=== PATIENT | male | born 1945 | race Caucasian/White ===

== ENCOUNTER → 2017-04-18 | Outpatient (CLI) | payer MEDICARE | END | disposition home or self-care (01) | LOC: LABPAT 13:42 | PROVIDERS: ATTEND Orthopaedic Surgery | DX: Z01.812 Encounter for preprocedural laboratory examination (principal) | CPT/HCPCS: 87070 ==

== ENCOUNTER 2017-04-24 07:07 | Inpatient (IN) | payer MEDICARE ==
[2017-04-20 10:12] VITALS: BMI 43.2
--- NOTE | 2017-04-23 10:07 | HP ---
DATE OF ADMISSION: CHIEF COMPLAINT: Right knee pain. HISTORY OF PRESENT ILLNESS: The patient is a 71-year-old retired gentleman who presents with progressive right knee pain, worsening over the past several months. He has tried previous medications and injections with only partial temporary relief. He notes it severely limits his activities. PAST MEDICAL HISTORY: Significant for atrial fibrillation, hypertension, and arthritis. PAST SURGICAL HISTORY: Significant for right knee arthroscopy. CURRENT MEDICATIONS: 1. Amlodipine. 2. Aspirin. 3. Coumadin. 4. Simvastatin. 5. Tramadol. 6. Tylenol. 7. Metoprolol. He denies drug allergies. FAMILY HISTORY: Noncontributory. SOCIAL HISTORY: Negative for current tobacco or alcohol use. Sixteen-point review of systems otherwise reviewed and is noncontributory. On examination, the patient is approximately 5 feet 10 inches, 295 pounds of endomorphic habitus. HEENT exam is nonfocal. Neck is supple. He has painless passive motion of his right hip. Straight leg raise is negative. Active motion of the right knee -10 to 100 degrees of flexion. He has a moderate effusion. He is tender about the medial and lateral joint line. Collaterals are stable, Gerson's negative, Karishma's is equivocal. He has genu valgum alignment. His distal neurovascular exam appears intact in the right lower extremity. Previous weight-bearing, notch, lateral, and merchant views of the right knee obtained in the office show severe lateral and patellofemoral compartment narrowing. IMPRESSION: 1. Right knee severe lateral and patellofemoral compartment osteoarthrosis. 2. Increased body mass index. 3. Atrial fibrillation on chronic anticoagulation. RECOMMENDATIONS: I talked to the patient at length regarding his treatment options. At this point he is quite symptomatic because of pain related to his osteoarthrosis despite conservative measures. After thorough discussion, he opts to proceed with surgery. We will plan to proceed with right total knee arthroplasty. Risks and benefits were discussed at length in layman's terms. We will resume his Coumadin postoperatively. Patient underwent preoperative medical evaluation by Dr. Enciso along with preoperative cardiac evaluation by Dr. Elizabeth Betancourt.
[~2017-04-24 07:07] MED LIST: ACETAMINOPHEN TAB 500 MG TAB PO ONE; HYDROmorphone 1 MG/ML 1 ML SYRINGE IVP PRN; MELOXICAM 7.5 MG TAB PO ONE; MIDAZOLAM 2 MG/2 ML VIAL IV PRN; ONDANSETRON 4 MG/2 ML VIAL IVP ONE; TRANEXAMIC ACID 1,000 MG in SODIUM CHLORIDE 0.9% 100 ML IVPB ONE; ceFAZolin 3 GM in SODIUM CHLORIDE 0.9% 100 ML IVPB ONE
[2017-04-24] MEDS ORDERED: LIDOCAINE 1% 20 ML VIAL (10MG/ML) FOR IV START INTRADERMA ONE (11:44)
[2017-04-24] MEDS: LACTATED RINGERS 1,000 ML IV SCH (12:09)
[2017-04-24] MEDS ORDERED: ROPIVACAINE 246.25 MG, EPINEPHrine 0.5 MG, KETOROLAC 30 MG, cloNIDine HCL/PF 80 MCG, WA... MISCELLANE ONE ×5 (12:19)
[2017-04-24 12:26] LABS: INR 1.1 (<1.1); Prothrombin Time 11.2 sec (9.0-12.0)
--- NOTE | 2017-04-24 12:27 | P.DS ---
Providers Date of admission: 04/24/17 11:18 Expected date of discharge: 04/26/17 Attending physician: Hamzah Xavier Primary care physician: Zaheer Enciso [facility] Course: Date of admission: 04/24/2017 Date of discharge: 04/26/2017 Admission diagnosis: Status post right total knee arthroplasty Discharge diagnosis: Same Attending physician: Dr. Xavier Surgical procedures: Right total knee arthroplasty Brief history: Patient is a 71-year-old male with a history of progressive primary right knee osteoarthritis. At this point patient has failed conservative treatment measures and has opted to proceed with a elective right total knee arthroplasty. Hospital course: Details of patient's surgery can be found in operative report. Patient tolerated the procedure well and was subsequently transported to orthopedic floor. Patient's orthopeidc and medical care was provided daily. Patient had daily laboratory tests performed for evaluation of overall blood counts. Patient had daily physical therapy to include strengthening range of motion as well as education with walker ambulation. Patient had daily CPM usage as part of their physical therapy program. Patient was treated with Coumadin and Lovenox for their postoperative DVT prophylaxis during their inpatient stay. Patient was noted to have a relatively uneventful postoperative course. Patient reported satisfactory pain control with oral pain medications by postoperative day 0. Patient showed satisfactory progress with physical therapy. Patient moved steadily through the program and had no difficulty meeting the goals by postoperative day 2. Given patient's otherwise satisfactory course and having met physical therapy goals, plan is to discharge patient home on postoperative day 2. Discharge condition/disposition: Patient will be discharged home in stable condition. Discharge medications: Instructions are given on resumption of patient's normal daily medications per primary care recommendation, in addition patient will be prescribed [place] 7.5 mg/325 mg, Colace 100 mg, Pepcid 20 mg Discharge instructions: 1. Wound care and infection precautions, [keep incision dry and covered while showering], no lotions, creams, moisturizers. No soaking, tubs, pools, hottubs. Do not scrub over the incision. 2. Weight-bear as tolerated with walker / cane until follow-up. 3. Ice and elevate when necessary. Do not exceed 20 minutes per hour with ice pack. 4. Utilize compression sleeve until seen at first follow up appointment. 5. Visiting nursing care. 6. Home physical therapy including home CPM. 7. Pain meds and anticoagulants per prescription. 8. Pain medication has potential to cause constipation. Increase oral fluid and fiber intake. Contact primary care provider if you have not had a bowel movement within 48 hours after discharge 9. No anti-inflammatory medication until discussed at first post operative visit, this including Motrin, Aleve, Mobic, Diclofenac. 10. Follow up in office at 2 weeks postop with Jeffrey Ashby PA-C 11. Follow up with your primary care doctor 7-10 days after discharge. 12. Contact [facility] with any questions, . Procedures: Right total knee arthroplasty Patient Condition at Discharge: Good Plan - Discharge Summary New Discharge Prescriptions: New Docusate [Colace] 100 mg PO DAILY #30 capsule Famotidine [Pepcid] 20 mg PO DAILY #30 tablet HYDROcodone/APAP 7.5-325MG [[place] 7.5] 1 - 2 each PO Q6HR PRN #60 tab PRN Reason: Pain Continue Melatonin 10 mg PO HS Acetaminophen [Tylenol Arthritis] 650 mg PO BID Warfarin Sodium [Coumadin] 2.5 mg PO SUSA Metoprolol Tartrate 50 mg PO TID Warfarin Sodium [Coumadin] 5 mg PO MOTUWETHFR Tamsulosin [Flomax] 0.8 mg PO HS Aspirin [Adult Low Dose Aspirin EC] 81 mg PO DAILY Centrum Cardio 1 tab PO DAILY amLODIPine [Norvasc] 5 mg PO DAILY traMADol HCL [Ultram] 50 mg PO Q6HR PRN PRN Reason: Pain Simvastatin [Zocor] 20 mg PO HS Biobiflex 1 tab PO DAILY Discharge Medication List Acetaminophen [Tylenol Arthritis] 650 mg PO BID 04/20/17 [History] Aspirin [Adult Low Dose Aspirin EC] 81 mg PO DAILY 04/20/17 [History] Biobiflex 1 tab PO DAILY 04/20/17 [History] Centrum Cardio 1 tab PO DAILY 04/20/17 [History] Melatonin 10 mg PO HS 04/20/17 [History] Metoprolol Tartrate 50 mg PO TID 04/20/17 [History] Simvastatin [Zocor] 20 mg PO HS 04/20/17 [History] Tamsulosin [Flomax] 0.8 mg PO HS 04/20/17 [History] Warfarin Sodium [Coumadin] 2.5 mg PO SUSA 04/20/17 [History] Warfarin Sodium [Coumadin] 5 mg PO MOTUWETHFR 04/20/17 [History] amLODIPine [Norvasc] 5 mg PO DAILY 04/20/17 [History] traMADol HCL [Ultram] 50 mg PO Q6HR PRN 04/20/17 [History] Docusate [Colace] 100 mg PO DAILY #30 capsule 04/26/17 [Rx] Famotidine [Pepcid] 20 mg PO DAILY #30 tablet 04/26/17 [Rx] HYDROcodone/APAP 7.5-325MG [[place] 7.5] 1 - 2 each PO Q6HR PRN #60 tab 04/26/17 [ Rx] Follow up Appointment(s)/Referral(s): Nubia Betancourt MD [STAFF PHYSICIAN] - 2 Weeks (Office will call PT back with appointment time) [facility], [NON-STAFF] - As Needed Triston Ashby PAC [PHYSICIAN PUBLICATION DESIGNER] - 05/09/17 2:10 pm Ambulatory/Diagnostic Orders: Basic Metabolic Panel [LAB.AMB] Location: Determined By Patient Complete Blood Count w/diff [LAB.AMB] Location: Determined By Patient Prothrombin Time INR [LAB.AMB] Location: Determined By Patient Activity/Diet/Wound Care/Special Instructions: Orthopedic Discharge Instructions: 1. Wound care and infection precautions, keep incision dry and covered while showering, no lotions, creams, moisturizers. No soaking, pools, hot tubs. Do not scrub over incision. 2. Weight-bear as tolerated with walker / cane until follow-up. 3. Ice and elevate when necessary. Do not exceed 20 minutes per hour with ice pack. 4. Utilize compression sleeve until seen at first follow up appointment. 5. Visiting nursing care. 6. Home physical therapy including home CPM. 7. Pain meds and anticoagulants per prescription. 8. Pain medication has potential to cause constipation. Increase oral fluid and fiber intake. Contact primary care provider if you have not had a bowel movement within 48 hours after discharge. 9. No anti-inflammatory medication until discussed at first post operative visit, this including Motrin, Aleve, Mobic, Diclofenac. 10. Follow up in office at 2 weeks postop with Jeffrey Ashby PA-C 11. Follow up with your primary care doctor 7-10 days after discharge. 12. Contact [facility] with any questions, . Discharge Disposition: HOME WITH HOME HEALTH SERVICES
[2017-04-24] MEDS ORDERED: ROPIVACAINE 1,100 MG, SODIUM CHLORIDE 0.9% 330 ML MISCELLANE PRN ×2 (13:06)
--- NOTE | 2017-04-24 13:08 | P.ONQ ---
Anesthesiology Proc Note - PNB - Peripheral Nerve Block Performed Right Adductor Canal Infusion Time Out Performed: Yes Indication: Acute Post-Operative Pain, Dx/Pain Location (Rt Knee) Specifically requested for management of pain by DrDeandre: Hamzah Xavier Sedation Type: Sedate with meaningful contact maintained Preparation: Sterile Dressing Position: Supine Catheter: Indwelling Needle Types: Other (see comment) (Pajunk) Needle Size: 100mm (4") Technique: Ultrasound Injectate: 0.5% Ropivacaine (see comment for volume) (30 cc) Blood Aspirated: No Pain Paresthesia on Injection Noted: No Resistance on Injection: Normal Events: Uneventful and Well Tolerated
[2017-04-24] MEDS ORDERED: TRANEXAMIC ACID 1,000 MG/10 ML VIAL ONE (13:24)
[2017-04-24] MEDS ORDERED: fentaNYL (PF) 50 MCG/ML 2 ML AMP ONE (13:24)
[2017-04-24] MEDS ORDERED: MIDAZOLAM 2 MG/2 ML VIAL ONE (13:24)
[2017-04-24] MEDS ORDERED: ePHEDrine 50 MG/ML 1 ML AMP ONE (13:24)
[2017-04-24] MEDS ORDERED: PHENYLEPHRINE-0.9% NACL SYG 1 MG/10 ML SYRINGE ONE (13:24)
[2017-04-24] MEDS ORDERED: SODIUM CHLORIDE 0.9% 100 ML BAG ONE (13:24)
[2017-04-24] MEDS ORDERED: PROPOFOL 10 MG/ML 20 ML VIAL IV ONE (13:24)
[2017-04-24] MEDS ORDERED: ceFAZolin 3,000 MG in SODIUM CHLORIDE 0.9% IRRIGATIO 3,000 ML IRRIGATION ONE (13:49)
[2017-04-24] MEDS ORDERED: ACETAMINOPHEN TAB 325 MG TAB PO PRN (15:23)
[2017-04-24] MEDS ORDERED: MAGNESIUM HYDROXIDE 2,400 MG/10 ML CUP PO PRN (15:23)
[2017-04-24] MEDS ORDERED: HYDROcodone/APAP 7.5-325MG 1 EACH TAB PO PRN (15:23)
[2017-04-24] MEDS ORDERED: NALOXONE 0.4 MG/ML 1 ML VIAL IV PRN (15:23)
[2017-04-24] MEDS ORDERED: ONDANSETRON 4 MG/2 ML VIAL IVP PRN (15:23)
[2017-04-24] MEDS ORDERED: HYDROmorphone 1 MG/ML 1 ML SYRINGE IVP PRN ×2 (15:23)
--- NOTE | 2017-04-24 16:04 | P.OP ---
Date of Procedure: 04/24/17 Preoperative Diagnosis: Severe right knee tricompartmental osteoarthrosis-primary Postoperative Diagnosis: Same Procedure(s) Performed: Right total knee [id number]-exfsoptdf stabilized Implants: Depuy Attune size 7 cemented femoral component, size 7 cemented tibial component , 16 millimeter articular surface, 38 mm cemented patellar component. This is a posterior stabilized implant. Anesthesia: regional, local, spinal Surgeon: Hamzah Xavier Asbestos Shingle Inspector #1: Triston Ashby Estimated Blood Loss (ml): 50 Pathology: other (Bone fragments) Condition: stable Disposition: PACU Indications for Procedure: The patient is a 71-year-old male who presents with progressive right knee pain secondary to osteoarthrosis despite conservative treatment. A discussion of the risks and benefits of operative intervention versus continued conservative measures was made with patient. He opted to proceed with surgery. Operative risks to include infection, neurovascular injury, development of blood clots, possible component loosening, possible component failure need for subsequent procedures was discussed. The understood he is at higher risk for complications because of his increased body mass index. Informed consent was obtained. Operative Findings: Severe tricompartmental osteoarthrosis Description of Procedure: The patient was brought to the operating room, and after induction of spinal anesthesia the right lower extremity was prepped and draped in normal fashion. The tourniquet was inflated to 270 mmHg. A longitudinal incision extending 3 finger breaths above the superior pole of patella extending to the medial aspect of the tibial tubercle was then made. The skin and subcu changed tissues were divided sharply. Electrocautery was used for hemostasis. A medial parapatellar arthrotomy was performed. The medial soft tissues to include the superficial and deep portions of the medial collateral ligament were elevated subperiosteally. The patella was everted. A portion of the retropatellar fat pad was excised sharply. The knee was flexed. The anterior cruciate ligament was previously ruptured. The lateral soft tissues were elevated off the lateral femoral upper condyle to include the LCL and popliteus. A starting hole was made in the distal femur 1 cm anterior to the posterior cruciate ligament origin. An intramedullary guide was gently inserted planning on 5 valgus distal cut with 9 mm distal resection. The cutting block was pinned in place. The distal cut was then made. As he did have a flexion contracture preoperatively, an additional 2 mm was resected utilizing the cutting block. The posterior referencing sizing guide was utilized. I felt size 7 was most appropriate. 3 of external rotation was built into the system and verified off the trans-epicondylar axis and the posterior condyles. The cutting block was pinned in place. The anterior, posterior, and chamfer cuts were then made. Bone fragments were removed. The notch guide was placed and the notch cut was made with the reciprocating saw. The bone block and PCL were resected. The trial size 7 femoral component was placed and was fully seated. There is good anterior to posterior medial to lateral fit. The distal peg holes were drilled. The trial component was then removed. Attention was then paid towards preparing the proximal tibia. An extra medullary guide was utilized in line with the tibial shaft and second metatarsal distally. A 0 posterior slope cutting block was utilized. I planned on 2 mm resection from the lateral compartment. The cutting block was pinned in place. The posterior soft tissues were retracted with a retractor. The proximal tibial cut was made in the bone removed in one fragment. The tibia sized most appropriate size 7. The remnants of medial and lateral menisci were excised at the capsular junction with electrocautery. The trial femoral and tibial components were placed along with a 16 mm articular surface. I was able to obtain full flexion and extension with good stability with varus and valgus stress. After several flexion and extension cycles, the tibial rotation was marked with electrocautery in line with the medial one third of the tibial tubercle. Attention was then paid towards preparing the patella. A patella reamer was utilized taking this down to 14 mm of bone stock. A good flush cut was made. The patella sized most appropriately 38 mm. The peg holes were drilled. The trial components placed. I had good patellofemoral tracking with no hands technique. The trial components were then removed. The posterior osteophytes of the distal femur were carefully removed with a curved osteotome. The tibia was prepared in the appropriate rotation with appropriate drill and keel punch. The flexion and extension gaps were checked and felt to be symmetric. The bony surfaces were prepared with pulsatile lavage and dried. The posterior soft tissues were injected with ropivacaine. The tibial component was then cemented in placed and was fully seated. Excess cement was removed. The femoral component was cemented place and was fully seated. Excess cement was removed. The trial 16 mm articular surface was placed and knee was put in full extension. The patella component was cemented in placed and after the cement had sufficiently hardened, the knee was again taken through a range of motion. I was able to obtain full flexion and extension with good stability with varus and valgus stress. The trial articular surface was removed and the final 16 mm articular surface was placed and was fully seated. Care was taken to avoid any soft tissue interposition. Pulsatile lavage was utilized. The medial parapatellar arthrotomy was closed with #2 Ethibond suture. The subcutaneous tissues were reapproximated with interrupted 2-0 Vicryl sutures. The skin was reapproximated with 3-0 subcuticular strata fix suture. And tape and adhesive was applied. The tourniquet was deflated with approximately 90 minutes total tourniquet time. A sterile dressing was applied. The patient was awoken from sedation and transferred to the recovery room in good condition. Blood loss was estimated 50 mL. No complications were incurred. Sponge and needle counts were correct at the end the case.
--- NOTE | 2017-04-24 16:17 | XR ---
EXAMINATION TYPE: XR knee limited RT DATE OF EXAM: 04/24/2017 CLINICAL HISTORY: Right knee pain and arthritis status post total knee replacement. TECHNIQUE: Portable AP and crosstable lateral views of the right knee are obtained immediately posto peratively. COMPARISON: None FINDINGS: [place] osseous structures are somewhat demineralized. Metallic hardware from total right kn ee arthroplasty is seen and appears satisfactory in alignment and position. There is evidence of rec ent surgery with diffuse subcutaneous gas , soft tissue swelling, and percutaneous surgical drain not ed. IMPRESSION: METALLIC HARDWARE FROM TOTAL RIGHT KNEE ARTHROPLASTY IS SATISFACTORY IN ALIGNMENT.
[2017-04-24 16:31] VITALS: RESP 16
[2017-04-24] MEDS: WARFARIN 5 MG TAB PO SCH (17:55)
[2017-04-24] MEDS: SENNOSIDES-DOCUSATE SODIUM 1 EACH TAB PO SCH (21:13)
[2017-04-24] MEDS: HYDROcodone/APAP 7.5-325MG 1 EACH TAB PO PRN (21:14)
[2017-04-24] MEDS: ATORVASTATIN 10 MG TAB PO SCH (21:15)
[2017-04-24] MEDS: TAMSULOSIN 0.4 MG CAP.ER.24H PO SCH (21:15)
[2017-04-24] MEDS: METOPROLOL TARTRATE 50 MG TAB PO SCH (21:15)
[2017-04-24] MEDS: MELATONIN 5 MG TABLET PO SCH (21:15)
[2017-04-24] MEDS: ceFAZolin 3 GM in SODIUM CHLORIDE 0.9% 100 ML IVPB SCH (22:13)
[2017-04-24] MEDS: traMADol 50 MG TAB PO PRN (22:16)
[2017-04-25] MEDS: LACTATED RINGERS 1,000 ML IV SCH (05:04)
[2017-04-25] MEDS: ceFAZolin 3 GM in SODIUM CHLORIDE 0.9% 100 ML IVPB SCH (05:05)
--- NOTE | 2017-04-25 06:10 | CONS ---
DATE OF CONSULTATION: 04/24/2017 REASON FOR CONSULTATION: Medical management requested by Dr. Xavier. CONSULTATION: This is a pleasant 71-year-old patient of Dr. Enciso who has undergone a right total knee arthroplasty. Post procedure, the pain is controlled. No nausea or vomiting. No chest pain. Chronic stable medical conditions include atrial fibrillation for which he is on Coumadin, hyperlipidemia, hypertension, obstructive sleep apnea, and arthritis in other joints. and daughter at the bedside. REVIEW OF SYSTEMS: CONSTITUTIONAL: None. HEENT: None. RESPIRATORY: None. CARDIOVASCULAR: None. GASTROINTESTINAL: None. GENITOURINARY: None. MUSCULOSKELETAL: Pain especially in the knees and hands. DERMATOLOGIC: None. HEMATOLOGIC: None. LYMPHATICS: None. PSYCHIATRY: None. NEUROLOGICAL: None. Past history of atrial fibrillation, hyperlipidemia, hypertension, obstructive sleep apnea, arthritis in the knees and hands. PAST SURGICAL HISTORY: Bowel resection, cardiac ablation, cholecystectomy, hernia repair, umbilical hernia repair. SOCIAL HISTORY: No smoking. No alcohol. Used to do office job. Retired. . FAMILY HISTORY: Reviewed, noncontributory to the presentation. HOME MEDICATIONS: 1. Norvasc 5 mg a day. 2. ( ) 1 tablet p.o. daily. 3. Ultram 50 mg q.6 p.r.n. 4. Flomax 0.8 mg q.h.s. 5. Zocor 20 mg q.h.s. 6. Metoprolol 50 mg p.o. t.i.d. 7. Melatonin 10 mg q.h.s. 8. Tylenol arthritis 650 mg p.o. b.i.d. 9. Coumadin 5 mg on Sunday, Sunday, Sunday, , Sunday and 2.5 mg on Sunday and Sunday. 10. Centrum Cardio 1 tablet daily. 11. Aspirin 81 mg p.o. daily. ALLERGIES: None. On examination, temperature 97.2, pulse 86, respiration 18, blood pressure 114/59, pulse ox 94% on room air. GENERAL APPEARANCE: Well built, BMI of 43.2. Sitting up, not in distress. EYES: Pupils equal. Conjunctivae normal. HEENT: Oral cavity normal. NECK: JVD not raised. Mass not palpable. RESPIRATORY: Effort normal. LUNGS: Fair air entry. CARDIOVASCULAR: First and second sounds normal. No edema. ABDOMEN: Soft, nontender. Liver and spleen not palpable. LYMPHATIC: No lymph nodes palpable of the neck or axillae. PSYCHIATRY: Alert and oriented x3. Mood and affect normal. NEUROLOGICAL: Pupils equal. Cranial nerves grossly intact. Power and sensation grossly intact. EXTREMITIES: Right knee in a dressing with a Hemovac in place. INVESTIGATIONS: INR is noted. ASSESSMENT: 1. Right total knee arthroplasty. 2. Atrial fibrillation, the patient is chronically on Coumadin. 3. Hyperlipidemia. 4. Hypertension. 5. Obstructive sleep apnea, uses CPAP machine. 6. Primary osteoarthritis, especially of the hands and knees. 7. Morbid obesity, body mass index 43.2. PLAN: Patient should see dietitian for weight loss. Patient should go back on his Coumadin when okay, otherwise home medications are to be resumed. Care was discussed with the patient. Questions were answered. Thank you, Dr. Xavier.
[2017-04-25] MEDS: HYDROcodone/APAP 7.5-325MG 1 EACH TAB PO PRN ×2 (06:36→15:43)
[2017-04-25 07:26] LABS: Basophils % (A) 0 %; CH 34.5; CHCM 31.7; Eosinophils % (A) 1 %; HCT 39.2 % (39.0-53.0); HDW 2.04; HGB 12.7 gm/dL (13.0-17.5); Luc # (Auto) 0.11; Luc % (Auto) 2; Lymphocytes # (A) 0.9 k/uL (1.0-4.8); Lymphocytes % (A) 13 %; MCH 35.5 pg (25.0-35.0); MCHC 32.4 g/dL (31.0-37.0); MCV 109.5 fL (80.0-100.0); Macrocytosis Marked; Mean Platelet Volume 9.1; Monocytes # (A) 0.3 k/uL (0-1.0); Monocytes % (A) 5 %; Neutrophils # (A) 5.8 k/uL (1.3-7.7); Neutrophils % (A) 81 %; RBC 3.58 m/uL (4.30-5.90); RDW 13.2 % (11.5-15.5); WBC 7.2 k/uL (3.8-10.6)
[2017-04-25 07:36] LABS: INR 1.1 (<1.1); Prothrombin Time 11.3 sec (9.0-12.0)
[2017-04-25] MEDS: amLODIPine 5 MG TAB PO SCH (08:41)
[2017-04-25] MEDS: METOPROLOL TARTRATE 50 MG TAB PO SCH ×3 (08:41→21:20)
[2017-04-25] MEDS: HEPARIN SODIUM,PORCINE 5,000 UNIT/ML 1 ML VIAL SQ SCH ×2 (08:41→21:19)
[2017-04-25] MEDS: FAMOTIDINE 20 MG TAB PO SCH (08:41)
[2017-04-25 08:43] LABS: Manual Review Performed
--- NOTE | 2017-04-25 11:29 | P.PN ---
Subjective Principal diagnosis: Status post right total knee arthroplasty Patient is seen today resting in his hospital chair, he appears to be in no acute distress. His pain is controlled at this time. Patient denies any lightheadedness, headaches, shortness of breath, chest pain, fever or chills. Objective - Vital Signs Vital signs: Vital Signs Temp 98.9 F 04/25/17 07:00 Pulse 96 04/25/17 07:00 Resp 16 04/25/17 07:00 BP 136/78 04/25/17 07:00 Pulse Ox 93 L 04/25/17 07:00 Intake & Output 04/24/17 04/25/17 04/25/17 18:59 06:59 18:59 Intake Total 1001 160 240 Output Total 150 504 Balance 851 -344 240 Weight 140.614 kg Intake: IV 1001 160 Lactated Ringers 1,000 ml 160 @ 40 mls/hr IV .Q24H HOWARD Rx#:[id number] Oral 240 Output: Drainage 100 300 Right Knee 100 300 Urine 150 Post Void Residual 54 Estimated Blood Loss 50 Other: Voiding Method Toilet Urinal # Voids 1 - Exam Right lower extremity: Incision is clean, dry and intact. Minimal soft tissue swelling present around the knee. His calf is soft, no tenderness with palpation. Plantar flexion, dorsiflexion, EHL, FHL are intact. Sensory exam to light touch throughout the extremities intact, capillary refill is less then 2 seconds. - Labs CBC & Chem 7: 04/25/17 07:04 Labs: Abnormal Lab Results - Last 24 Hours (Table) 04/25/17 Range/Units 07:04 RBC 3.58 L (4.30-5.90) m/uL Hgb 12.7 L (13.0-17.5) gm/dL MCV 109.5 H (80.0-100.0) fL MCH 35.5 H (25.0-35.0) pg Plt Count 144 L (150-450) k/uL Lymphocytes # 0.9 L (1.0-4.8) k/uL Assessment and Plan Plan: Assessment: 1. Postop day #1 status post right total knee arthroplasty Plan: 1. Pain control, continue use of oral medication 2. Daily dressing changes/ice and elevate 3. Continue work with physical therapy and use of CPM machine 4. Encourage incentive spirometer 5. GI and DVT prophylaxis, continue scheduled dose of Coumadin, also continue heparin until INR is therapeutic 6. Medical recommendations 7. Discharge planning: Patient will be likely discharged home tomorrow Time with Patient: Less than 30
--- NOTE | 2017-04-25 16:31 | P.PN ---
Progress Note - Text DATE OF SERVICE: 04/25/2017 PRESENTING COMPLAINT: Left knee arthroplasty INTERVAL HISTORY: Status post right total knee arthroplasty. Sitting the chair , appears comfortable tolerating his diet working with physical therapy. No chest pain no dizziness no nausea. REVIEW OF SYSTEMS: Review of systems done for constitutional cardiovascular and GI with relevant findings as above. CURRENT MEDICATIONS Norvasc, Ultram, Flomax, metoprolol, Coumadin. PHYSICAL EXAM: VITAL SIGNS: Temperature 98.8 pulse 78 respiratory rate 16 blood pressure 136/ 72 oxygen saturation 93% on room air GENERAL APPEARANCE: Average build. Lying in bed, not in distress. EYES: Pupils equal. Conjunctiva normal. NECK: JVD not raised. Mass not palpable. RESPIRATORY: Respiratory effort normal. Lungs clear to auscultation. CARDIOVASCULAR: First and second sounds normal. No edema. ABDOMEN: Soft. Liver and spleen not palpable. No tenderness. No mass palpable. PSYCHIATRY: Alert and oriented x3. Mood and affect normal. NEUROLOGICAL: Cranial nerves grossly intact. No facial asymmetry. Power and sensation grossly intact MUSCULOSKELETAL: Left knee dressing intact plantar and dorsiflexion present INVESTIGATIONS: Hemoglobin 12.7, platelet count 144 ASSESSMENT: #1 right total knee arthroplasty 2. Atrial fibrillation, patient is chronically on to Coumadin 3. Hyperlipidemia 4. Hypertension 5. Obstructive sleep apnea uses CPAP machine. 6. Chronic osteoarthritis especially of the hands and knees. 7. Morbid obesity, body mass index 43.2 PLAN: Continue current medication and treatment plan. Care was discussed with patient. BLACK TOP MACHINE OPERATOR statement: Patient was seen and examined by nurse practitioner Arlene Sherman in all elements of the case discussed with attending is Dr. Power
[2017-04-25] MEDS: WARFARIN 5 MG TAB PO SCH (17:18)
[2017-04-25] MEDS: traMADol 50 MG TAB PO PRN (17:19)
--- NOTE | 2017-04-25 18:24 | P.PN ---
Progress Note - Text The patient is status post right adductor canal catheter placement. The catheter was placed for postoperative pain control, status post total [right ] arthroplasty. Ropivacaine 0.2% is infusing at[8 ] mLs per hour. The patient has no complaints of[ right] lower extremity numbness or weakness. Patient's VAS score is[4 ]-10. Assessment: Patient's adductor canal catheter is in place and working appropriately. Plan: Increase the basal rate to 10 ML's per hour, continue infusion and adjust it as needed.
[2017-04-25] MEDS: MELATONIN 5 MG TABLET PO SCH (21:19)
[2017-04-25] MEDS: TAMSULOSIN 0.4 MG CAP.ER.24H PO SCH (21:19)
[2017-04-25] MEDS: ATORVASTATIN 10 MG TAB PO SCH (21:19)
[2017-04-25] MEDS: SENNOSIDES-DOCUSATE SODIUM 1 EACH TAB PO SCH (21:20)
[2017-04-26] MEDS: LACTATED RINGERS 1,000 ML IV SCH (05:06)
[2017-04-26] MEDS: HYDROcodone/APAP 7.5-325MG 1 EACH TAB PO PRN ×2 (05:26→12:22)
--- NOTE | 2017-04-26 06:54 | PN ---
DATE OF SERVICE: 04/25/2017 ATTENDING NOTE: This patient was seen and examined by me earlier today. I review the note of my nurse practitioner, Ms. Sherman. Discussed additional findings below. Patient is status post ( ) knee surgery, comfortable, sitting up. On examination, lungs are clear. CARDIOVASCULAR: First and second sounds normal. Minimal edema. ASSESSMENT: 1. Right total knee arthroplasty. 2. Atrial fibrillation, chronically on Coumadin. INR is 1.1. Continue medication and treatment plan. Will follow.
[2017-04-26 07:32] VITALS: BP 130/80; PULSE 97; TEMP 98.9
[2017-04-26 07:41] LABS: INR 1.2 (<1.1)
[2017-04-26] MEDS: METOPROLOL TARTRATE 50 MG TAB PO SCH (09:09)
[2017-04-26] MEDS: amLODIPine 5 MG TAB PO SCH (09:09)
[2017-04-26] MEDS: FAMOTIDINE 20 MG TAB PO SCH (09:09)
[2017-04-26] MEDS: HEPARIN SODIUM,PORCINE 5,000 UNIT/ML 1 ML VIAL SQ SCH (09:09)
[2017-04-26] MEDS ORDERED: WARFARIN 7.5 MG TAB PO ONE (09:15)
--- NOTE | 2017-04-26 09:44 | P.PN ---
Subjective Principal diagnosis: Status post right total knee arthroplasty Patient is seen today resting in his hospital chair, he appears to be in no acute distress. His pain is controlled at this time. Patient denies any lightheadedness, headaches, shortness of breath, chest pain, fever or chills. Objective - Vital Signs Vital signs: Vital Signs Temp 98.9 F 04/26/17 07:00 Pulse 97 04/26/17 07:00 Resp 16 04/26/17 07:00 BP 130/80 04/26/17 07:00 Pulse Ox 92 L 04/26/17 07:00 Intake & Output 04/25/17 04/26/17 04/26/17 18:59 06:59 18:59 Intake Total 540 200 Balance 540 200 Weight 140.614 kg Intake: Oral 540 200 Other: Voiding Method Urinal Urinal # Voids 2 2 - Exam Right lower extremity: Incision is clean, dry and intact. Minimal soft tissue swelling present around the knee. His calf is soft, no tenderness with palpation. Plantar flexion, dorsiflexion, EHL, FHL are intact. Sensory exam to light touch throughout the extremities intact, capillary refill is less then 2 seconds. - Labs CBC & Chem 7: 04/25/17 07:04 Assessment and Plan Plan: Assessment: 1. Postop day #2 status post right total knee arthroplasty Plan: 1. Pain control, continue use of oral medication 2. Daily dressing changes/ice and elevate 3. Continue work with physical therapy and use of CPM machine 4. Encourage incentive spirometer 5. GI and DVT prophylaxis, patient will resume his home Coumadin starting tomorrow, he will receive 7.5 mg before discharge today 6. Medical recommendations 7. Discharge planning: Patient will be discharged home today Time with Patient: Less than 30
--- NOTE | 2017-04-26 11:05 | P.PN ---
Progress Note - Text The patient is status post right adductor canal catheter placement. The catheter was placed for postoperative pain control, status post total right arthroplasty. Ropivacaine 0.2% is infusing at 10 mLs per hour. The patient has no complaints of] right lower extremity numbness or weakness. Patient's VAS score is 2-3 -10. Assessment: Patient's adductor canal catheter is in place and working appropriately. Plan: The patient's adductor canal catheter was discontinued this morning. Pain meds will be provided the patient by the service.
--- NOTE | 2017-04-26 12:31 | P.CRDCN ---
History of Present Illness Consult date: 04/25/17 History of present illness: This is a pleasant 71-year-old gentleman who sees Dr. KJ Betancourt on regular basis with a past medical history significant for paroxysmal atrial fibrillation, hypertension, dyslipidemia, and severe arthritis, who was admitted to the hospital and underwent total right knee arthroplasty yesterday with a good results. The surgery was uneventful. From a cardiovascular standpoint overview, the patient denies having any chest pain or discomfort or difficulty breathing or heart racing or fluttering. The INR on the day the patient was seen which was in April 25 was 1.1 and he was received 5 mg of Coumadin. The patient continues to be hemodynamically stable with a good blood pressure and normal heart rate. Past Medical History Past Medical History: Atrial Fibrillation, Hyperlipidemia, Hypertension, Prostate Disorder, Sleep Apnea/CPAP/BIPAP History of Any Multi-Drug Resistant Organisms: None Reported Past Surgical History: Bowel Resection, Cardiac Ablation, Cholecystectomy, Hernia Repair Additional Past Surgical History / Comment(s): umbilical hernia Past Anesthesia/Blood Transfusion Reactions: No Reported Reaction Past Psychological History: No Psychological Hx Reported Smoking Status: Never smoker Past Alcohol Use History: Occasional Past Drug Use History: None Reported - Past Family History Mother Family Medical History: No Reported History Medications and Allergies Home Medications Medication Instructions Recorded Confirmed Type Acetaminophen [Tylenol Arthritis] 650 mg PO BID 04/20/17 04/24/17 History Aspirin [Adult Low Dose Aspirin EC] 81 mg PO DAILY 04/20/17 04/24/17 History Biobiflex 1 tab PO DAILY 04/20/17 04/24/17 History Centrum Cardio 1 tab PO DAILY 04/20/17 04/24/17 History Melatonin 10 mg PO HS 04/20/17 04/24/17 History Metoprolol Tartrate 50 mg PO TID 04/20/17 04/24/17 History Simvastatin [Zocor] 20 mg PO HS 04/20/17 04/24/17 History Tamsulosin [Flomax] 0.8 mg PO HS 04/20/17 04/24/17 History Warfarin Sodium [Coumadin] 2.5 mg PO SUSA 04/20/17 04/24/17 History Warfarin Sodium [Coumadin] 5 mg PO MOTUWETHFR 04/20/17 04/24/17 History amLODIPine [Norvasc] 5 mg PO DAILY 04/20/17 04/24/17 History traMADol HCL [Ultram] 50 mg PO Q6HR PRN 04/20/17 04/24/17 History Allergies Allergy/AdvReac Type Severity Reaction Status Date / Time No Known Allergies Allergy Verified 04/20/17 09:57 Physical Exam Vitals: Vital Signs Temp Pulse Resp BP Pulse Ox 04/26/17 07:00 98.9 F 97 16 130/80 92 L 04/26/17 03:18 83 04/26/17 02:50 99.0 F 106 H 16 133/80 93 L 04/26/17 00:00 16 04/25/17 20:16 99.2 F 73 16 119/61 94 L 04/25/17 20:00 16 04/25/17 13:58 98.8 F 78 16 136/72 93 L Intake and Output 04/25/17 04/26/17 04/26/17 22:59 06:59 14:59 Intake Total 200 Balance 200 Intake: Oral 200 Other: Voiding Method Urinal # Voids 1 2 2 - Constitutional General appearance: no acute distress - Respiratory Respiratory: bilateral: CTA - Cardiovascular Heart sounds: normal: S1, S2 Results 04/25/17 07:04 Coagulation 04/26/17 Range/Units 06:48 PT 12.0 (9.0-12.0) sec Current Medications Generic Name Dose Route Start Last Admin Trade Name Freq PRN Reason Stop Dose Admin Acetaminophen 650 mg 04/24/17 15:23 Tylenol Tab PO Q4HR PRN Pain Scale 1 to 5 Hydrocodone Bitart/Acetaminophen 1 each 04/24/17 15:23 Ponce 7.5-325 PO Q6H PRN Pain Scale 1 to 5 Hydrocodone Bitart/Acetaminophen 2 each 04/24/17 15:23 04/26/17 12:22 Ponce 7.5-325 PO 2 each Q6H PRN Administration Pain Scale 6 to 10 Amlodipine Besylate 5 mg 04/25/17 09:00 04/26/17 09:09 Norvasc PO 5 mg DAILY HOWARD Administration Atorvastatin Calcium 10 mg 04/24/17 21:00 04/25/17 21:19 Lipitor PO 10 mg HS HOWARD Administration Ropivacaine 1,100 mg/ Sodium 0 mg 04/24/17 13:06 04/24/17 16:15 Chloride 330 ml MISCELLANE 1,100 mg Q2H PRN Administration Breakthrough Pain Famotidine 20 mg 04/25/17 09:00 04/26/17 09:09 Pepcid PO 20 mg DAILY HOWARD Administration Heparin Sodium (Porcine) 5,000 unit 04/24/17 21:00 04/26/17 09:09 Heparin SQ 5,000 unit Q12HR HOWARD Administration Hydromorphone HCl 0.25 mg 04/24/17 15:23 Dilaudid IVP Q3HR PRN Pain Scale 4 to 6 Hydromorphone HCl 0.5 mg 04/24/17 15:23 04/24/17 23:52 Dilaudid IVP 0.5 mg Q3HR PRN Administration Pain Scale 7 to 10 Lactated Ringer's 1,000 mls @ 40 mls/hr 04/24/17 05:23 04/26/17 05:06 Lactated Ringers IV Not Given .Q24H HOWARD Magnesium Hydroxide 2,400 mg 04/24/17 15:23 Milk Of Magnesia PO DAILY PRN Constipation Melatonin 10 mg 04/24/17 21:00 04/25/17 21:19 Melatonin PO 10 mg HS HOWARD Administration Metoprolol Tartrate 50 mg 04/24/17 22:00 04/26/17 09:09 Lopressor PO 50 mg TID HOWARD Administration Naloxone HCl 0.2 mg 04/24/17 15:23 Narcan IV Q2M PRN Opioid Reversal Ondansetron HCl 4 mg 04/24/17 15:23 Zofran IVP Q8HR PRN Nausea And Vomiting Senna/Docusate Sodium 2 each 04/24/17 21:00 04/25/17 21:20 Senokot-S PO 2 each HS HOWARD Administration Tamsulosin HCl 0.8 mg 04/24/17 21:00 04/25/17 21:19 Flomax PO 0.8 mg HS HOWARD Administration Tramadol HCl 50 mg 04/24/17 15:23 04/25/17 17:19 Ultram PO 50 mg Q6H PRN Administration Mild to Moderate Pain Warfarin Sodium 2.5 mg 04/28/17 18:00 Coumadin PO [id number]@1800 HOWARD Warfarin Sodium 5 mg 04/24/17 18:00 04/25/17 17:18 Coumadin PO 5 mg [id number]@1800 HOWARD Administration Intake and Output 06/06/0404/26/17 04/26/17 22:59 06:59 14:59 Intake Total 200 Balance 200 Intake: Oral 200 Other: Voiding Method Urinal # Voids 1 2 2 04/25/17 07:04 Assessment and Plan Plan: Assessment This is a pleasant 71-year-old gentleman with known paroxysmal atrial fibrillation who underwent right total knee arthroplasty. Plan The patient was receiving on Coumadin and we'll continue monitor the INR on daily basis. Beside that he continues to be asymptomatic from a cardiovascular standpoint overview and denies having any chest pain or discomfort. We will continue following up with him
--- NOTE | 2017-04-26 12:32 | P.PN ---
Progress Note - Text This is a pleasant 71-year-old gentleman who sees Dr. KJ Betancourt on regular basis with a past medical history significant for paroxysmal atrial fibrillation, hypertension, dyslipidemia, and severe arthritis, who was admitted to the hospital and underwent total right knee arthroplasty yesterday with a good results. The surgery was uneventful. From a cardiovascular standpoint overview, the patient denies having any chest pain or discomfort or difficulty breathing or heart racing or fluttering. The INR today was 1.2 and he is going to receive 7.5 mg of Coumadin today and will check the INR once he sees by Dr. KJ Betancourt in the office in the next few days. The patient continues to be hemodynamically stable with a good blood pressure and normal heart rate.
--- NOTE | 2017-04-27 21:44 | PN ---
DATE OF SERVICE: 04/26/2017 ATTENDING NOTE: This patient was seen and examined by me on 04/26/17. Patient is sitting in a chair, comfortable. No new issues. Did work with Physical Therapy. Keen to go home. No chest pain or shortness of breath. Review of systems done for constitutional, cardiovascular, GI, pulmonary, musculoskeletal; relevant findings as above. Current medications are reviewed. On examination, temperature 98.9, pulse 97, respiration 16, blood pressure 130/80, pulse ox 92% on room air. GENERAL APPEARANCE: Sitting up, comfortable. EYES: Pupils equal. Conjunctivae normal. NECK: JVD not raised. Mass not palpable. RESPIRATORY: Effort normal. LUNGS: Diminished breath sounds. CARDIOVASCULAR: First and second sounds normal. Minimal edema. ABDOMEN: Soft, nontender. Liver and spleen not palpable. PSYCHIATRY: Alert and oriented x3. Mood and affect normal. INVESTIGATIONS: No blood work from today. ASSESSMENT: 1. Right total knee arthroplasty. 2. Persistent atrial fibrillation, chronically on Coumadin. 3. Hyperlipidemia. 4. Essential hypertension. 5. Obstructive sleep apnea; uses CPAP machine. 6. Primary osteoarthritis, especially in the hands and knees. 7. Morbid obesity; body mass index of 43.2. PLAN: Continue current medication and treatment plan. Looking at discharge planning. Care was discussed with the patient.
[2017-04-28] MEDS ORDERED: WARFARIN 2.5 MG TAB PO SCH (18:00)
== END 2017-04-26 12:56 | disposition home health service (06) | DRG 470 ==
LOC: 2ORMAIN 11:18 → 3SUR 15:47
PROVIDERS: ADMIT Orthopaedic Surgery; ATTEND Orthopaedic Surgery
PROC: 0SRC0J9 Replacement of Right Knee Joint with Synthetic Substitute, Cemented, Open Approach (ICD-10-PCS; principal; 2017-04-24 13:05)
DX: M17.11 Unilateral primary osteoarthritis, right knee (principal); I48.0 Paroxysmal atrial fibrillation; Z68.41 Body mass index [BMI] 40.0-44.9, adult; E66.01 Morbid (severe) obesity due to excess calories; I10 Essential (primary) hypertension; E78.5 Hyperlipidemia, unspecified; G47.33 Obstructive sleep apnea (adult) (pediatric); Z79.01 Long term (current) use of anticoagulants; Z79.82 Long term (current) use of aspirin; Z79.899 Other long term (current) drug therapy; M21.061 Valgus deformity, not elsewhere classified, right knee
CPT/HCPCS: 85025; 85610; 88300

== ENCOUNTER 2017-04-26 22:52 | Inpatient (IN) | payer MEDICARE ==
[2017-04-26] MEDS ORDERED: IBUPROFEN 600 MG TAB PO STA (23:06)
[2017-04-26] MEDS ORDERED: ACETAMINOPHEN TAB 500 MG TAB PO STA (23:06)
--- NOTE | 2017-04-26 23:08 | ED ---
General Adult HPI - General Stated complaint: weakness Time Seen by Provider: 04/26/17 22:55 Source: RN notes reviewed - History of Present Illness Initial comments: This is a 71-year-old male who comes into the emergency department today stating that he feels tired. Patient states he had a right knee replacement on Sunday and then he feels fine is not in any pain. Patient states he just feels fatigued and tired all day long. Patient was unaware that it 101 6 fever. Patient denies any cough patient denies difficulty breathing or shortness of breath. Patient denies any chest pain or palpitations. Patient denies abdominal pain. Patient denies nausea vomiting or diarrhea. Patient denies any dysuria hematuria urinary frequency. Patient states he did try to get a fully catheter in during surgery but they were unable to get a pass his prostate. Patient denies any areas of redness or any lesions or rashes. Patient denies headache patient denies numbness weakness. Patient denies any neck stiffness. - Related Data Home Medications Medication Instructions Recorded Confirmed Acetaminophen [Tylenol Arthritis] 650 mg PO BID 04/20/17 04/24/17 Aspirin [Adult Low Dose Aspirin EC] 81 mg PO DAILY 04/20/17 04/24/17 Biobiflex 1 tab PO DAILY 04/20/17 04/24/17 Centrum Cardio 1 tab PO DAILY 04/20/17 04/24/17 Melatonin 10 mg PO HS 04/20/17 04/24/17 Metoprolol Tartrate 50 mg PO TID 04/20/17 04/24/17 Simvastatin [Zocor] 20 mg PO HS 04/20/17 04/24/17 Tamsulosin [Flomax] 0.8 mg PO HS 04/20/17 04/24/17 Warfarin Sodium [Coumadin] 2.5 mg PO SUSA 04/20/17 04/24/17 Warfarin Sodium [Coumadin] 5 mg PO MOTUWETHFR 04/20/17 04/24/17 amLODIPine [Norvasc] 5 mg PO DAILY 04/20/17 04/24/17 traMADol HCL [Ultram] 50 mg PO Q6HR PRN 04/20/17 04/24/17 Previous Rx's Medication Instructions Recorded Docusate [Colace] 100 mg PO DAILY #30 capsule 04/26/17 Famotidine [Pepcid] 20 mg PO DAILY #30 tablet 04/26/17 HYDROcodone/APAP 7.5-325MG [Manteno 1 - 2 each PO Q6HR PRN #60 tab 04/26/17 7.5] Allergies Allergy/AdvReac Type Severity Reaction Status Date / Time No Known Allergies Allergy Verified 04/20/17 09:57 Review of Systems ROS Statement: Those systems with pertinent positive or pertinent negative responses have been documented in the HPI. ROS Other: All systems not noted in ROS Statement are negative. General Exam - General Exam Comments Initial Comments: GENERAL: Patient is well-developed and well-nourished. Patient is nontoxic and well- hydrated and is in no acute distress. ENT: Neck is soft and supple. No significant lymphadenopathy is noted. Oropharynx is clear. Moist mucous membranes. Neck has full range of motion without eliciting any pain. EYES: The sclera were anicteric and conjunctiva were pink and moist. Extraocular movements were intact and pupils were equal round and reactive to light. Eyelids were unremarkable. PULMONARY: Unlabored respirations. Good breath sounds bilaterally. No audible rales rhonchi or wheezing was noted. CARDIOVASCULAR: There is a regular rate and rhythm without any murmurs gallops or rubs. ABDOMEN: Soft and nontender with normal bowel sounds. No palpable organomegaly was noted. There is no palpable pulsatile mass. SKIN: Wound is healing well and there is no signs of infection no redness. NEUROLOGIC: Patient is alert and oriented x3. Cranial nerves II through XII are grossly intact. Motor and sensory are also intact. Normal speech, volume and content. Symmetrical smile. MUSCULOSKELETAL: patient has reasonable range of motion without any pain. LYMPHATICS: No significant lymphadenopathy is noted PSYCHIATRIC: Normal psychiatric evaluation. Normal interpersonal interactions appears functionally intact in deals appropriately with others. No signs of depression. No signs of anxiety. Course Vital Signs 04/26/17 04/26/17 04/27/17 23:09 23:59 01:15 Temperature 101.6 F H Pulse Rate 117 H 117 H 107 H Respiratory 16 18 18 Rate Blood Pressure 137/78 137/78 146/67 O2 Sat by Pulse 94 L 100 Oximetry 04/27/17 01:18 Temperature 101.7 F H Pulse Rate Respiratory Rate Blood Pressure O2 Sat by Pulse Oximetry Medical Decision Making - Medical Decision Making EKG shows atrial fibrillation with a rapid ventricular response at 190 bpm QRS is 90 QT interval is 298 QTC is 411. Patient's EKG is consistent with his history he's had a diagnosis of atrial fibrillation in the past and is on Coumadin currently for. Patient's urine may be infected so I started the patient on Rocephin. Patient continued to be weak so since he was just discharged this morning I admitted the patient and I counseled Dr. Xavier to see the patient as well. - Lab Data Result diagrams: 04/26/17 23:42 04/26/17 23:42 Lab Results 04/26/17 04/26/17 04/26/17 Range/Units 23:27 23:42 23:42 WBC 8.6 (3.8-10.6) k/uL RBC 3.43 L (4.30-5.90) m/uL Hgb 11.9 L (13.0-17.5) gm/dL Hct 37.3 L (39.0-53.0) % MCV 108.7 H (80.0-100.0) fL MCH 34.6 (25.0-35.0) pg MCHC 31.8 (31.0-37.0) g/dL RDW 13.2 (11.5-15.5) % Plt Count 123 L (150-450) k/uL Neutrophils % 86 % Lymphocytes % 6 % Monocytes % 6 % Eosinophils % 0 % Basophils % 1 % Neutrophils # 7.4 (1.3-7.7) k/uL Lymphocytes # 0.5 L (1.0-4.8) k/uL Monocytes # 0.5 (0-1.0) k/uL Eosinophils # 0.0 (0-0.7) k/uL Basophils # 0.1 (0-0.2) k/uL Macrocytosis Moderate Sodium 140 (137-145) mmol/L Potassium 3.8 (3.5-5.1) mmol/L Chloride 104 (98-107) mmol/L Carbon Dioxide 26 (22-30) mmol/L Anion Gap 10 mmol/L BUN 20 (9-20) mg/dL Creatinine 0.70 (0.66-1.25) mg/dL Est GFR (MDRD) Af Amer >60 (>60 ml/min/1.73 sqM) Est GFR (MDRD) Non-Af >60 (>60 ml/min/1.73 sqM) Glucose 159 H (74-99) mg/dL Plasma Lactic Acid Damir (0.7-2.0) mmol/L Calcium 9.0 (8.4-10.2) mg/dL Total Bilirubin 0.8 (0.2-1.3) mg/dL AST 48 (17-59) U/L ALT 44 (21-72) U/L Alkaline Phosphatase 87 (38-126) U/L Total Protein 6.2 L (6.3-8.2) g/dL Albumin 3.5 (3.5-5.0) g/dL Urine Color Yellow Urine Appearance Clear (Clear) Urine pH 5.5 (5.0-8.0) Ur Specific [place] 1.026 (1.001-1.035) Urine Protein 1+ H (Negative) Urine Glucose (UA) Negative (Negative) Urine Ketones 2+ H (Negative) Urine Blood Small H (Negative) Urine Nitrite Negative (Negative) Urine Bilirubin Negative (Negative) Urine Urobilinogen <2.0 (<2.0) mg/dL Ur Leukocyte Esterase Moderate H (Negative) Urine RBC 2 (0-5) /hpf Urine WBC 29 H (0-5) /hpf Hyaline Casts 3 H (0-2) /lpf Urine Mucus Rare H (None) /hpf Influenza Type A RNA (Not Detectd) Influenza Type B (PCR) (Not Detectd) 04/26/17 04/26/17 Range/Units 23:42 23:42 WBC (3.8-10.6) k/uL RBC (4.30-5.90) m/uL Hgb (13.0-17.5) gm/dL Hct (39.0-53.0) % MCV (80.0-100.0) fL MCH (25.0-35.0) pg MCHC (31.0-37.0) g/dL RDW (11.5-15.5) % Plt Count (150-450) k/uL Neutrophils % % Lymphocytes % % Monocytes % % Eosinophils % % Basophils % % Neutrophils # (1.3-7.7) k/uL Lymphocytes # (1.0-4.8) k/uL Monocytes # (0-1.0) k/uL Eosinophils # (0-0.7) k/uL Basophils # (0-0.2) k/uL Macrocytosis Sodium (137-145) mmol/L Potassium (3.5-5.1) mmol/L Chloride (98-107) mmol/L Carbon Dioxide (22-30) mmol/L Anion Gap mmol/L BUN (9-20) mg/dL Creatinine (0.66-1.25) mg/dL Est GFR (MDRD) Af Amer (>60 ml/min/1.73 sqM) Est GFR (MDRD) Non-Af (>60 ml/min/1.73 sqM) Glucose (74-99) mg/dL Plasma Lactic Acid Damir 2.3 H* (0.7-2.0) mmol/L Calcium (8.4-10.2) mg/dL Total Bilirubin (0.2-1.3) mg/dL AST (17-59) U/L ALT (21-72) U/L Alkaline Phosphatase (38-126) U/L Total Protein (6.3-8.2) g/dL Albumin (3.5-5.0) g/dL Urine Color Urine Appearance (Clear) Urine pH (5.0-8.0) Ur Specific [place] (1.001-1.035) Urine Protein (Negative) Urine Glucose (UA) (Negative) Urine Ketones (Negative) Urine Blood (Negative) Urine Nitrite (Negative) Urine Bilirubin (Negative) Urine Urobilinogen (<2.0) mg/dL Ur Leukocyte Esterase (Negative) Urine RBC (0-5) /hpf Urine WBC (0-5) /hpf Hyaline Casts (0-2) /lpf Urine Mucus (None) /hpf Influenza Type A RNA Not Detected (Not Detectd) Influenza Type B (PCR) Not Detected (Not Detectd) Disposition Clinical Impression: Urinary tract infection, Weakness Disposition: ADMITTED IP TO THIS HOSP Referrals: Zaheer Enciso MD [Primary Care Provider] - 1-2 days Time of Disposition: 01:27
[2017-04-26] MEDS: SODIUM CHLORIDE 0.9% 500 ML IV SCH (23:48)
[2017-04-26 23:59] LABS: Basophils # (A) 0.1 k/uL (0-0.2); Basophils % (A) 1 %; CH 35.5; CHCM 32.8; Eosinophils % (A) 0 %; HCT 37.3 % (39.0-53.0); HDW 2.08; HGB 11.9 gm/dL (13.0-17.5); Luc # (Auto) 0.14; Luc % (Auto) 2; Lymphocytes # (A) 0.5 k/uL (1.0-4.8); Lymphocytes % (A) 6 %; MCH 34.6 pg (25.0-35.0); MCHC 31.8 g/dL (31.0-37.0); MCV 108.7 fL (80.0-100.0); Macrocytosis Moderate; Mean Platelet Volume 9.6; Monocytes # (A) 0.5 k/uL (0-1.0); Monocytes % (A) 6 %; Neutrophils # (A) 7.4 k/uL (1.3-7.7); Neutrophils % (A) 86 %; RBC 3.43 m/uL (4.30-5.90); RDW 13.2 % (11.5-15.5); WBC 8.6 k/uL (3.8-10.6); WBC (Perox) 8.84
[2017-04-27 00:04] LABS: Appearance,Urine Clear (Clear); Bilirubin,Urine Negative (Negative); Glucose,Urine (UA) Negative (Negative); Ketones,Urine 2+ (Negative); Leukocyte Esterase,Urine Moderate (Negative); Mucus,Urine Rare /hpf; Nitrite,Urine Negative (Negative); PH, Urine 5.5 (5.0-8.0); Particle Count 6017; Protein,Urine 1+ (Negative); RBC,Urine 2 /hpf (0-5); Specific Gravity,Urine 1.026 (1.001-1.035); UA Billing (MACRO vs. MICRO) MICRO; Urobilinogen,Urine <2.0 mg/dL (<2.0); WBC,Urine 29 /hpf (0-5)
[2017-04-27 00:11] LABS: ALT 44 U/L (21-72); AST 48 U/L (17-59); Alkaline Phosphatase 87 U/L (38-126); Anion Gap 10 mmol/L; Blood Urea Nitrogen 20 mg/dL (9-20); Carbon Dioxide 26 mmol/L (22-30); Chloride 104 mmol/L (98-107); Glucose 159 mg/dL (74-99); Non-African American GFR(MDRD) >60 (>60 ml/min/1.73 sqM); Potassium 3.8 mmol/L (3.5-5.1); Sodium 140 mmol/L (137-145); Total Bilirubin 0.8 mg/dL (0.2-1.3); Total Protein 6.2 g/dL (6.3-8.2)
--- NOTE | 2017-04-27 00:27 | XR ---
EXAM: XR Chest, 2 Views CLINICAL HISTORY: Reason: Fever TECHNIQUE: Frontal and lateral views of the chest. COMPARISON: No relevant prior studies available. FINDINGS: Lungs: Lungs are clear without focal infiltrates or consolidations. Pleural space: No evidence of pleural effusion or pneumothorax. Heart: Heart size is mildly enlarged. Mediastinum: Retrocardiac opacity raising possibility of small hiatal hernia. Bones/joints: Degenerative changes involve the mid and lower thoracic spine. Vasculature: Thoracic aorta is elongated. IMPRESSION: Mild cardiomegaly. Retrocardiac opacity raising possibility of small hiatal hernia. No evidence of acute cardiopulmonary disease.
[2017-04-27] MEDS: SODIUM CHLORIDE 0.9% 500 ML IV SCH (01:09)
[2017-04-27] MEDS ORDERED: SODIUM CHLORIDE 0.9% 1,000 ML IV ONE (01:28)
[2017-04-27 03:20] VITALS: BMI 41.8
[2017-04-27 03:55] LABS: INR 1.5 (<1.1); Prothrombin Time 14.6 sec (9.0-12.0)
[2017-04-27] MEDS ORDERED: traMADol 50 MG TAB PO PRN (08:31)
[2017-04-27] MEDS ORDERED: HYDROcodone/APAP 7.5-325MG 1 EACH TAB PO PRN ×2 (08:35→08:42)
--- NOTE | 2017-04-27 08:58 | P.PN ---
Progress Note - Text S: The patient denies significant knee pain. He denies shortness of breath or chest pain. O: T-max 101.4, vital signs stable Homans negative right lower extremity Distal neurovascular status intact in the right lower extremity Incision clean, dry , and intact A/P status post right total knee arthroplasty Urinary tract infection Medical management DVT prophylaxis with Xarelto May continue weightbearing as tolerated with a walker and use of the CPM.
[2017-04-27] MEDS ORDERED: [UNRECOGNIZED DRUG - OTHER] PO SCH (09:00)
[2017-04-27] MEDS: ACETAMINOPHEN TAB 325 MG TAB PO SCH ×2 (09:23→20:32)
[2017-04-27] MEDS: METOPROLOL TARTRATE 50 MG TAB PO SCH ×3 (09:26→22:44)
[2017-04-27] MEDS: amLODIPine 5 MG TAB PO SCH (09:27)
[2017-04-27] MEDS: FAMOTIDINE 20 MG TAB PO SCH (09:27)
[2017-04-27] MEDS: ASPIRIN 81 MG CHEW PO SCH (09:27)
[2017-04-27] MEDS: DOCUSATE 100 MG CAP PO SCH (09:27)
[2017-04-27] MEDS: MULTIVITAMINS, THERA 1 EACH TAB PO SCH (12:31)
[2017-04-27] MEDS ORDERED: WARFARIN 5 MG TAB PO SCH (18:00)
--- NOTE | 2017-04-27 19:43 | HP ---
DATE OF ADMISSION: 04/27/2017 PRESENTING COMPLAINT: Weak and tired. HISTORY OF PRESENTING COMPLAINT: This is a 71-year-old patient who was just discharged from the orthopedic floor yesterday. He had surgery done by Dr. Xavier. Patient's chronic stable medical conditions include atrial fibrillation, for which he is on Coumadin, hyperlipidemia, hypertension, obstructive sleep apnea, arthritis in multiple joints. Patient did undergo right total knee arthroplasty. Patient was doing well when he left the hospital. When he went home he just felt weak and tired. He also developed a fever and also developed some discomfort during urination; hence he came back and was admitted for a UTI, put on IV ceftriaxone. REVIEW OF SYSTEMS: CONSTITUTIONAL: Febrile. Weak and tired. HEENT: None. RESPIRATORY: None. CARDIOVASCULAR: None. GASTROINTESTINAL: None. GENITOURINARY: As above. MUSCULOSKELETAL: Pain in the joints. DERMATOLOGICAL: None. HEMATOLOGICAL: None. LYMPHATICS: None. PSYCHIATRY: None. NEUROLOGICAL: None. PAST MEDICAL HISTORY: 1. Atrial fibrillation. 2. Hyperlipidemia. 3. Hypertension. 4. Obstructive sleep apnea. 5. Arthritis in knees and hands. PAST SURGICAL HISTORY: 1. Bowel resection. 2. Cardiac ablation. 3. Cholecystectomy. 4. Hernia repair. 5. Umbilical hernia repair. 6. Right total knee arthroplasty. SOCIAL HISTORY: No smoking. No alcohol use. Used to do an office job. Retired. . FAMILY HISTORY: Reviewed; noncontributory to presentation. ALLERGIES: NONE. HOME MEDICATIONS: 1. Ultram 50 mg q.6 p.r.n. 2. Norvasc 5 mg p.o. daily. 3. Coumadin 5 mg on Sunday, Sunday, Sunday, , Sunday and 2.5 mg on Sunday and Sunday. 4. Flomax 0.8 mg p.o. at bedtime. 5. Zocor 20 mg at bedtime. 6. Metoprolol 50 mg p.o. t.i.d. 7. Melatonin 10 mg at bedtime. 8. [place] 7.5 one to two tablets q.6 p.r.n. 9. Pepcid 20 mg p.o. daily. 10. Colace 100 mg p.o. daily. 11. Centrum Cardio 1 tablet p.o. daily. 12. Bio B-Flex 1 tablet p.o. daily. 13. Aspirin 81 mg p.o. daily. 14. Tylenol Arthritis 650 mg p.o. b.i.d. ALLERGIES: NONE. On examination, T-max 101.7, pulse 117, respiration 16, blood pressure 137/78, pulse ox 94% on 2 L. GENERAL APPEARANCE: Well built; BMI of 41.8. Sitting up, tired-appearing. EYES: Pupils equal. Conjunctivae normal. HEENT: Oral cavity normal. NECK: JVD not raised. Mass not palpable. RESPIRATORY: Effort normal. LUNGS: Diminished breath sounds. CARDIOVASCULAR: First and second sounds normal. No edema. ABDOMEN: Soft, nontender. Liver and spleen not palpable. LYMPHATIC: No lymph node palpable in neck or axillae. PSYCHIATRY: Alert and oriented x3. Mood and affect normal. NEUROLOGICAL: Pupils equal. Cranial grossly intact. Power and sensation grossly intact. EXTREMITIES: Incision on the right knee healing well. INVESTIGATIONS: White count 8.6, hemoglobin 11.9, potassium 3.8. BUN and creatinine are normal. Lactic acid 2.3. UA positive for leukocyte esterase. ASSESSMENT: 1. Acute urinary tract infection causing sepsis, present on admission. 2. Right total knee arthroplasty recently. 3. Persistent atrial fibrillation, chronically on Coumadin. 4. Hyperlipidemia. 5. Essential hypertension. 6. Obstructive sleep apnea; uses CPAP machine. 7. Primary osteoarthritis, especially in the hands and knees. 8. Morbid obesity; body mass index of 43.2. PLAN: Patient was put on IV antibiotics, given some IV fluids. Home medication are resumed. Social workers are involved. Care was discussed with the patient.
[2017-04-27] MEDS: MELATONIN 5 MG TABLET PO SCH (20:31)
[2017-04-27] MEDS: TAMSULOSIN 0.4 MG CAP.ER.24H PO SCH (20:31)
[2017-04-27] MEDS: ATORVASTATIN 10 MG TAB PO SCH (20:32)
[2017-04-28 06:56] LABS: Basophils % (A) 0 %; CH 35.2; CHCM 32.3; Eosinophils # (A) 0.1 k/uL (0-0.7); Eosinophils % (A) 1 %; HCT 34.9 % (39.0-53.0); HDW 2.22; HGB 11.3 gm/dL (13.0-17.5); Luc # (Auto) 0.21; Luc % (Auto) 4; Lymphocytes # (A) 1.3 k/uL (1.0-4.8); Lymphocytes % (A) 22 %; MCH 35.3 pg (25.0-35.0); MCHC 32.2 g/dL (31.0-37.0); MCV 109.6 fL (80.0-100.0); Macrocytosis Marked; Mean Platelet Volume 9.4; Monocytes # (A) 0.4 k/uL (0-1.0); Monocytes % (A) 7 %; Neutrophils # (A) 3.9 k/uL (1.3-7.7); Neutrophils % (A) 67 %; RBC 3.19 m/uL (4.30-5.90); RDW 13.4 % (11.5-15.5); WBC 5.8 k/uL (3.8-10.6); WBC (Perox) 6.12
[2017-04-28 07:06] LABS: Anion Gap 5 mmol/L; Blood Urea Nitrogen 10 mg/dL (9-20); Calcium 8.3 mg/dL (8.4-10.2); Carbon Dioxide 28 mmol/L (22-30); Chloride 107 mmol/L (98-107); Glucose 122 mg/dL (74-99); Non-African American GFR(MDRD) >60 (>60 ml/min/1.73 sqM); Potassium 3.8 mmol/L (3.5-5.1); Sodium 140 mmol/L (137-145)
[2017-04-28 07:17] LABS: Manual Review Performed; Polychromasia Present
--- NOTE | 2017-04-28 08:23 | P.PN ---
Progress Note - Text S: The patient has no complaints. They deny shortness of breath or chest pain. O: Afebrile, vital signs stable Homans [negative] right lower extremity Distal neurovascular status intact in the lower extremity extremity Incision clean, dry , and intact A/P: Status post right total knee arthroplasty UTI Medical management DVT prophylaxis with [Xarelto]
[2017-04-28] MEDS: METOPROLOL TARTRATE 50 MG TAB PO SCH ×3 (08:35→22:22)
[2017-04-28] MEDS: FAMOTIDINE 20 MG TAB PO SCH (08:35)
[2017-04-28] MEDS: ASPIRIN 81 MG CHEW PO SCH (08:35)
[2017-04-28] MEDS: amLODIPine 5 MG TAB PO SCH (08:36)
[2017-04-28] MEDS: ACETAMINOPHEN TAB 325 MG TAB PO SCH ×2 (08:36→21:07)
[2017-04-28] MEDS: DOCUSATE 100 MG CAP PO SCH (08:37)
[2017-04-28] MEDS: MULTIVITAMINS, THERA 1 EACH TAB PO SCH (12:28)
[2017-04-28] MEDS: WARFARIN 2.5 MG TAB PO SCH (18:51)
[2017-04-28] MEDS ORDERED: MAGNESIUM HYDROXIDE 2,400 MG/10 ML CUP PO PRN (19:22)
[2017-04-28] MEDS: TAMSULOSIN 0.4 MG CAP.ER.24H PO SCH (21:07)
[2017-04-28] MEDS: MELATONIN 5 MG TABLET PO SCH (21:08)
[2017-04-28] MEDS: ATORVASTATIN 10 MG TAB PO SCH (21:08)
[2017-04-29] MEDS: amLODIPine 5 MG TAB PO SCH (08:19)
[2017-04-29] MEDS: FAMOTIDINE 20 MG TAB PO SCH (08:20)
[2017-04-29] MEDS: ASPIRIN 81 MG CHEW PO SCH (08:20)
[2017-04-29] MEDS: METOPROLOL TARTRATE 50 MG TAB PO SCH ×3 (08:20→21:01)
[2017-04-29] MEDS: DOCUSATE 100 MG CAP PO SCH (08:20)
[2017-04-29] MEDS: ACETAMINOPHEN TAB 325 MG TAB PO SCH ×2 (08:21→21:01)
--- NOTE | 2017-04-29 10:39 | PN ---
DATE OF SERVICE: 04/29/2017 PRESENTING COMPLAINT: Tired. INTERVAL HISTORY: This is a patient who was just discharged following orthopedic surgery and readmitted with acute urinary tract infection feeling really weak, tired and run down. Feeling better now. Awaiting placement to rehab. Did tolerate his diet. Sitting up in a chair. Review of systems were done for constitutional, cardiovascular, GI, pulmonary findings as above. Current medications are reviewed that include IV ceftriaxone. On examination, temperature 98.7, pulse 105, respiratory 15, blood pressure 132/78, pulse ox 98% on room air. GENERAL APPEARANCE: Sitting up on a chair, comfortable. EYES: Pupils equal. Conjunctivae normal. NECK: JVD not raised. Mass not palpable. RESPIRATORY: Effort normal. LUNGS: Slightly decreased breath sounds. CARDIOVASCULAR: First and second sounds normal. Minimal edema. ABDOMEN: Soft, tender. Liver and spleen not palpable. PSYCHIATRY: Alert and oriented x3. Mood and affect normal. Incision healing well. INVESTIGATIONS: White count 5.8, hemoglobin 11.3, potassium 3.8. Urine culture pending. ASSESSMENT: 1. Acute urinary tract infection causing sepsis, present on admission now, clinically improving. 2. Right total knee arthroplasty. 3. Persistent atrial fibrillation, chronically on Coumadin. 4. Hyperlipidemia. 5. Essential hypertension. 6. Obstructive sleep apnea, uses CPAP machine. 7. Primary osteoarthritis especially in the hands and knees. 8. Morbid obesity, body mass index 43.2. 9. Medical debility because of surgery pending placement to ECF. PLAN: Care was discussed with the patient. Continue current medication and treatment plan. Await culture results. Follow.
[2017-04-29] MEDS: MULTIVITAMINS, THERA 1 EACH TAB PO SCH (13:42)
[2017-04-29] MEDS: WARFARIN 2.5 MG TAB PO SCH (17:24)
[2017-04-29] MEDS ORDERED: IV VANCOMYCIN PER PHARMACY 1 EACH MISC MISCELLANE PRN (19:31)
[2017-04-29] MEDS ORDERED: PHYTONADIONE ORAL 5 MG/5 ML ORAL.SYRG PO STA (19:48)
[2017-04-29] MEDS ORDERED: VANCOMYCIN 2,000 MG in SODIUM CHLORIDE 0.9% 500 ML IVPB ONE (20:00)
[2017-04-29] MEDS: TAMSULOSIN 0.4 MG CAP.ER.24H PO SCH (20:58)
[2017-04-29] MEDS: MELATONIN 5 MG TABLET PO SCH (20:59)
[2017-04-29] MEDS: ATORVASTATIN 10 MG TAB PO SCH (20:59)
[2017-04-30] MEDS ORDERED: VANCOMYCIN 2,000 MG in SODIUM CHLORIDE 0.9% 500 ML IVPB SCH (06:00)
[2017-04-30 07:39] LABS: INR 1.4 (<1.1); Prothrombin Time 13.7 sec (9.0-12.0)
[2017-04-30 07:49] LABS: Anion Gap 6 mmol/L; Blood Urea Nitrogen 9 mg/dL (9-20); Calcium 8.4 mg/dL (8.4-10.2); Carbon Dioxide 27 mmol/L (22-30); Chloride 108 mmol/L (98-107); Glucose 124 mg/dL (74-99); Non-African American GFR(MDRD) >60 (>60 ml/min/1.73 sqM); Sodium 141 mmol/L (137-145)
[2017-04-30 07:53] LABS: Potassium 4.5 mmol/L (3.5-5.1)
[2017-04-30] MEDS: ACETAMINOPHEN TAB 325 MG TAB PO SCH (08:22)
[2017-04-30] MEDS: ASPIRIN 81 MG CHEW PO SCH (08:23)
[2017-04-30] MEDS: FAMOTIDINE 20 MG TAB PO SCH (08:23)
[2017-04-30] MEDS: METOPROLOL TARTRATE 50 MG TAB PO SCH ×2 (08:23→15:41)
[2017-04-30] MEDS: DOCUSATE 100 MG CAP PO SCH (08:24)
[2017-04-30] MEDS: amLODIPine 5 MG TAB PO SCH (08:24)
[2017-04-30] MEDS ORDERED: LIDOCAINE 2% INJ 20 MG/ML (20 ML MDV) ONE (10:46)
[2017-04-30] MEDS ORDERED: LIDOCAINE 2% INJ 20 MG/ML SQ ONE (10:53)
--- NOTE | 2017-04-30 11:19 | PN ---
DATE OF SERVICE: 04/28/2017 CORRECTION: To my note dictated on 04/28/2017 at 1958, date transcribed on 04/29/2017 at 1038, correct date of service is 04/28/2017.
--- NOTE | 2017-04-30 11:36 | PN ---
DATE OF SERVICE: 04/29/2017 PRESENTING COMPLAINT: Tired. INTERVAL HISTORY: This patient had surgery at the knee, readmitted with acute urinary tract infection, feeling weak, tired. Doing much better. Tolerating diet. Awaiting placement to ECF. No new issues. Review of systems done for constitutional, cardiovascular, GI, pulmonary; relevant findings as above. Current medications are reviewed that include IV ceftriaxone. On examination, afebrile, temperature 98.7, pulse 102, respirations 16, blood pressure 120/79, pulse ox 96% on room air. GENERAL APPEARANCE: Sitting up in a chair, comfortable. EYES: Pupils equal, conjunctivae normal. NECK: JVD not raised. Mass not palpable. RESPIRATORY: Effort normal. LUNGS: Decreased breath sounds. CARDIOVASCULAR: First and second sounds normal. Minimal edema. ABDOMEN: Soft, nontender. Liver and spleen not palpable. PSYCHIATRY: Alert and oriented x3. Mood and affect normal. INVESTIGATIONS: No blood work from today. ASSESSMENT: 1. Acute urinary tract infection causing sepsis on admission, now clinically improved. 2. Right knee arthroplasty. 3. Persistent atrial fibrillation, chronic, on Coumadin. 4. Hyperlipidemia. 5. Essential hypertension. 6. Obstructive sleep apnea, uses CPAP machine. 7. Primary osteoarthritis especially the hands and knees. 8. Morbid obesity, body mass index of 43.2. 9. Medical debility. Per Surgery pending placement to ECF. PLAN: Continue current medications and treatment plan. Patient will go to ECF. Patient's urine cultures came back growing enterococcus faecium. Will start the patient on IV vancomycin.
--- NOTE | 2017-04-30 12:14 | IR ---
EXAMINATION TYPE: IR cvc insert >=5 years DATE OF EXAM: 04/30/2017 COMPARISON: NONE CLINICAL HISTORY: Infection urinary tract infection Needs long-term intravenous access for antibiotic s. PROCEDURE: After informed consent, the skin overlying the upper extremity vein was localized with ultrasound and noted to be compressible and patent. An ultrasound image was obtained and submitted on the patient' s chart. The overlying skin was prepped and draped and Lidocaine was used for local anesthesia. A s kin fernandez was made with a scalpel. Access was gained to the vein under ultrasound guidance with a 21 gauge needle and a 0.018 inch wire was advanced. Access site was dilated with Peel-Away sheath and c atheter tailored to the appropriate length and advanced such that the distal tip is at the cavoatrial junction. Spot image was obtained verifying placement. Catheter was fixed to the skin with suture and a sterile dressing was placed following hemostasis. Catheter was aspirated and flushed with sali ne. Patient was discharged in stable condition without complication. Maximal barrier technique is ut ilized. Ultrasound image is documented on the chart. Ultrasound used with sterile technique. Fluoro time and fluoroscopic images submitted to document procedure: 63 intraoperative C-arm images, 0.1 minutes fluoroscopy time. IMPRESSION: STATUS POST ULTRASOUND AND FLUOROSCOPIC GUIDED PICC LINE PLACEMENT, READY FOR USE. THIS PROCEDURE WAS PERFORMED BY THE UNDERSIGNED.
--- NOTE | 2017-04-30 13:40 | CDI ---
In responding to this query, please exercise your independent professional judgment. The [facility] Coding Staff and Clinical Documentation Specialists appreciate your assistance in clarifying documentation, maintaining compliance with coding guidelines, accurately documenting patients condition and capturing severity of illness. The fact that a question is asked does not imply that any particular answer is desired or expected. Communication forms are a method of clarifying documentation and are not made part of the Legal Health Record. Thank you in advance for your clarification. Last Revision, September 2015 Armando Floers [address] [place] [address] Documentation Clarification Form Date: 04/30/2017 1:11:00 PM From: Kitty Pitt RN, CDS Admit Date: 04/27/2017 3:41:00 PM Patient Name: Rufino Alcaraz Visit Number: [id number] Arlene Sherman CNP / Dr. Stewart Power, 71 y/o patient presents with UTI and Sepsis following recent hospitalization for Right Total Knee replacement on 04/24/17. History/Risk factors: Recent Right Total Knee Arthroplasty on 04/24/17 with Hendricks inserted for surgery on 04/24 discontinued Clinical Indicators: UA small bld, mod leuk roly, 29 WBC's, Lactic Acid 2.3, UTI causing Sepsis Urine culture: 10,000-49,000 Enterococcus faecium Treatment: IV Rocephin, IV Vanco, PICC line In your professional opinion, can you please clarify the etiology of the UTI, if known? Hendricks catheter UTI/Sepsis not related to catheter Other condition, please specify Unable to determine If an infective organism is present, please specify cause and effect relationship if applicable. Please document in your progress notes and discharge summary in order to capture severity of illness and risk of mortality. Include clinical findings that support your diagnosis. FYI: Press F11 to launch patient chart Place X here if this finding has no clinical significance, is not applicable or if you are not able to provide any additional documentation. MTDD
[2017-04-30 13:46] VITALS: BP 161/93; PULSE 94; RESP 17; TEMP 98.5
[2017-04-30] MEDS: MULTIVITAMINS, THERA 1 EACH TAB PO SCH (14:01)
--- NOTE | 2017-04-30 16:17 | P.PN ---
Subjective Principal diagnosis: Status post right total knee arthroplasty, urinary tract infection Patient is seen today resting in his hospital chair, he appears to be no acute distress. Patient notes no increase in pain involving the right knee. Patient states he overall level of fatigue has improved. He denies any chest pain, lightheadedness, shortness of breath, fever. Objective - Vital Signs Vital signs: Vital Signs Temp 98.5 F 04/30/17 13:45 Pulse 94 04/30/17 13:45 Resp 17 04/30/17 13:45 BP 161/93 04/30/17 13:45 Pulse Ox 97 04/30/17 13:45 Intake & Output 04/29/17 04/30/17 04/30/17 18:59 06:59 18:59 Intake Total 0586 451 0277 Output Total 1000 750 600 Balance 80 -650 840 Intake: Oral 0386 410 7969 Output: Urine 1000 750 600 Other: Voiding Method Toilet Toilet Toilet Urinal Urinal Urinal # Voids 2 2 500 # Bowel Movements 2 1 - Exam Right lower extremity: Incision is clean, dry, and intact. Ecchymosis noted distal to the knee itself. The calf is soft, no tenderness with palpation. Range of motion of the knee, is limited due to most recent surgery, no excess pain reproduced. No effusion present on the knee. Plantar flexion, dorsiflexion, EHL, FHL are intact. Dorsal pedis pulses 2+, sensory exam light touch is intact - Labs CBC & Chem 7: 04/28/17 06:39 04/30/17 07:04 Labs: Abnormal Lab Results - Last 24 Hours (Table) 04/30/17 04/30/17 Range/Units 07:04 07:04 PT 13.7 H (9.0-12.0) sec Chloride 108 H (98-107) mmol/L Creatinine 0.53 L (0.66-1.25) mg/dL Glucose 124 H (74-99) mg/dL Microbiology - Last 24 Hours (Table) 04/26/17 23:42 Blood Culture - Preliminary Blood No Growth after 72 hours 04/26/17 23:27 Urine Culture - Final Urine,Voided Enterococcus faecium Assessment and Plan Plan: Assessment: 1. Post op #6 s/p right tka 2. UTI Plan: 1. With regards to the right total knee arthroplasty, it remained stable. Findings at this point are normal with regards to the postoperative period. I would recommend continuing with physical therapy and use of the CPM 2. Daily dressing changes/ice and elevate 3. Patient will be discharged to an extended care facility today, where he will resume therapy and CPM 4. A PICC line was placed today for IV antibiotics due to the urinary tract infection, internal medicine will be managing these orders 5. Pain control, he'll continue on the pain medications prescribed his previous hospital stay 6. Follow-up instructions: He will follow up in the outpatient setting [facility] 1 week
--- NOTE | 2017-04-30 17:27 | P.DS ---
Providers Date of admission: 04/27/17 15:41 Expected date of discharge: 04/30/17 Attending physician: Stewart Power Consults: 04/27/17 01:28 Consult Physician Urgent Consulting Provider: Hamzah Xavier Consult Reason/Comments: Status post knee surgery Do you want consulting provider notified?: Yes Primary care physician: [facility] Course: FINAL DIAGNOSES: 1 acute urinary tract infection causing sepsis on admission, now clinically improved. 2. Right knee arthroplasty 3. Persistent atrial fibrillation chronic, on Coumadin 4. Hyperlipidemia 5. Essential hypertension 6. Obstructive sleep apnea, uses CPAP machine 7. Primary osteoarthritis of the hands and knees 8. Morbid obesity, body mass index of 43.2 9. Medical debility, per surgery pending placement to [facility]. HOSPITAL COURSE; is a 71-year-old patient who was just discharged from the orthopedic floor on . Right Knee replacement surgery done by Dr. Larson. On day of discharge patient was well when he left. Once home patient was unable to get inside the house, felt weak and tired. Patient developed a fever and urinary discomfort. Urine culture completed, antibiotic therapy started, no further fevers. Patient feels better, tolerating his diet, working with physical therapy, moved his bowels. Patient does require more intensive physical therapy and a week of IV antibiotic therapy therefore will be sent to inpatient rehabilitation. PHYSICAL EXAM: GEN. appearance: Patient sitting in the chair, looks well. RESPIRATORY: Respiratory effort normal diminished breath sounds bilaterally MUSCULOSKELETAL: right knee incision covered with dressing, no erythema noted, no drainage no swelling. Plantar and dorsiflexion intact on the right foot. Patient was seen and examined by nurse practitioner Arlene Sherman in all elements of the case discussed with attending Dr. Power. Procedures: Urine culture, positive for enterococcus faecium Patient Condition at Discharge: Stable Plan - Discharge Summary New Discharge Prescriptions: New Vancomycin 2,000 mg IVPB Q12H #7 vial Continue Melatonin 10 mg PO HS Acetaminophen [Tylenol Arthritis] 650 mg PO BID Warfarin Sodium [Coumadin] 2.5 mg PO SUSA Metoprolol Tartrate 50 mg PO TID Warfarin Sodium [Coumadin] 5 mg PO MOTUWETHFR Tamsulosin [Flomax] 0.8 mg PO HS Aspirin [Adult Low Dose Aspirin EC] 81 mg PO DAILY Centrum Cardio 1 tab PO DAILY amLODIPine [Norvasc] 5 mg PO DAILY traMADol HCL [Ultram] 50 mg PO Q6HR PRN PRN Reason: Pain Simvastatin [Zocor] 20 mg PO HS Biobiflex 1 tab PO DAILY Docusate [Colace] 100 mg PO DAILY #30 capsule Famotidine [Pepcid] 20 mg PO DAILY #30 tablet HYDROcodone/APAP 7.5-325MG [Omro 7.5-325] 1 - 2 tab PO Q6HR PRN #20 PRN Reason: Pain Discharge Medication List Acetaminophen [Tylenol Arthritis] 650 mg PO BID 04/20/17 [History] Aspirin [Adult Low Dose Aspirin EC] 81 mg PO DAILY 04/20/17 [History] Biobiflex 1 tab PO DAILY 04/20/17 [History] Centrum Cardio 1 tab PO DAILY 04/20/17 [History] Melatonin 10 mg PO HS 04/20/17 [History] Metoprolol Tartrate 50 mg PO TID 04/20/17 [History] Simvastatin [Zocor] 20 mg PO HS 04/20/17 [History] Tamsulosin [Flomax] 0.8 mg PO HS 04/20/17 [History] Warfarin Sodium [Coumadin] 2.5 mg PO SUSA 04/20/17 [History] Warfarin Sodium [Coumadin] 5 mg PO MOTUWETHFR 04/20/17 [History] amLODIPine [Norvasc] 5 mg PO DAILY 04/20/17 [History] traMADol HCL [Ultram] 50 mg PO Q6HR PRN 04/20/17 [History] Docusate [Colace] 100 mg PO DAILY #30 capsule 04/26/17 [Rx] Famotidine [Pepcid] 20 mg PO DAILY #30 tablet 04/26/17 [Rx] HYDROcodone/APAP 7.5-325MG [Omro 7.5-325] 1 - 2 tab PO Q6HR PRN #20 04/30/17 [ Rx] Vancomycin 2,000 mg IVPB Q12H #7 vial 04/30/17 [Rx] Follow up Appointment(s)/Referral(s): Zaheer Enciso MD [Primary Care Provider] - 1-2 days (Patient to call and schedule follow up appointment after discharge from [facility].) Hamzah Xavier MD [STAFF PHYSICIAN] - 1 Week (Office closed. Patient to call and schedule follow up appointment.) Ambulatory/Diagnostic Orders: Prothrombin Time INR [LAB.AMB] Location: Determined By Patient Activity/Diet/Wound Care/Special Instructions: Orthopedic Discharge Instructions: 1. Wound care and infection precautions, keep incision dry and covered while showering, no lotions, creams, moisturizers. No soaking, pools, hot tubs. Do not scrub over incision. 2. Weight-bear as tolerated with walker / cane until follow-up. 3. Ice and elevate when necessary. Do not exceed 20 minutes per hour with ice pack. 4. Utilize compression sleeve until seen at first follow up appointment. 5. Visiting nursing care. 6. Home physical therapy including home CPM. 7. Pain meds and anticoagulants per prescription. 8. Pain medication has potential to cause constipation. Increase oral fluid and fiber intake. Contact primary care provider if you have not had a bowel movement within 48 hours after discharge. 9. No anti-inflammatory medication until discussed at first post operative visit, this including Motrin, Aleve, Mobic, Diclofenac. 10. Follow up in office at 2 weeks postop with Jeffrey Ashby PA-C 11. Follow up with your primary care doctor 7-10 days after discharge. 12. Contact [facility] with any questions, . Discharge Disposition: TRANSFER TO SNF/ECF
--- NOTE | 2017-05-01 12:15 | DS ---
DATE OF ADMISSION: 04/27/2017 DATE OF DISCHARGE: 04/30/2017 ATTENDING NOTE: This patient was seen and examined by me. I reviewed the note of my nurse practitioner, Ms. Sherman. Discussed additional findings below. This is a patient admitted with acute UTI with sepsis from enterococcus faeciu3. PICC line was placed for 7 days of IV antibiotics. Doing much better at the time of discharge. On examination, lungs are clear. CARDIOVASCULAR: First and second sounds normal. DISPOSITION: EF, more details in my OPTOMETRY DOCTOR notes. Discharge planning more than 35 minutes.
== END 2017-04-30 18:40 | DRG 872 ==
LOC: EC 22:52 → 3SUR 04-27 01:28 → OBSVTOIN 04-27 15:41
PROVIDERS: ADMIT Hospitalist; ATTEND Hospitalist
PROC: 02HV33Z Insertion of Infusion Device into Superior Vena Cava, Percutaneous Approach (ICD-10-PCS; principal; 2017-04-30 10:35)
PROC: B548ZZA Ultrasonography of Superior Vena Cava, Guidance (ICD-10-PCS; 2017-04-30 10:35)
DX: A41.81 Sepsis due to Enterococcus (principal); I48.1 Persistent atrial fibrillation; N39.0 Urinary tract infection, site not specified; Z68.41 Body mass index [BMI] 40.0-44.9, adult; E66.01 Morbid (severe) obesity due to excess calories; I10 Essential (primary) hypertension; E78.5 Hyperlipidemia, unspecified; G47.33 Obstructive sleep apnea (adult) (pediatric); M19.041 Primary osteoarthritis, right hand; M19.042 Primary osteoarthritis, left hand; M17.0 Bilateral primary osteoarthritis of knee; Z96.651 Presence of right artificial knee joint; Z90.49 Acquired absence of other specified parts of digestive tract; Z79.01 Long term (current) use of anticoagulants; Z79.82 Long term (current) use of aspirin; Z79.899 Other long term (current) drug therapy
CPT/HCPCS: 36415; 36569; 51798; 71020; 76937; 77001; 80048; 80053; 81001; 83605; 85025; 85610; 85730; 87040; 87077; 87086; 87186; 87502; 93005; 94760